=== PATIENT | female | born 1950 | race Asian ===

== ENCOUNTER 2017-10-26 15:58 | Emergency (ER) | payer MEDICARE, OTHER, SELFPAY ==
[2017-10-26 16:04] VITALS: BP 140/87; PULSE 74; RESP 14; TEMP 37.2; O2SAT 97
--- NOTE | 2017-10-26 16:09 | DI.CT.S_ITS ---
PROCEDURE: CT HEAD/BRAIN WO CON INDICATIONS: stroke symptoms - left sided weakness and facial droop for 3 days TECHNIQUE: Noncontrast 4.5 mm thick angled axial sections acquired from the foramen magnum to the vertex, with coronal and sagittal reformats. For radiation dose reduction, the following was used: automated exposure control, adjustment of mA and/or kV according to patient size. COMPARISON: [facility], MR, STROKE PROTOCOL (PNL), 09/02/2010, 10:49. [facility], CT, BRAIN W/O CONTRAST, 06/19/2014, 19:26. FINDINGS: Image quality: Excellent. CSF spaces: Basal cisterns are patent. No extra-axial fluid collections. Ventricles are normal in size and shape. A mild degree of cortical atrophy is present, age related. Brain: No midline shift. No intracranial masses or hemorrhage. Ahn-white matter interface is normal. Skull and face: Calvarium and visualized facial bones are intact, without suspicious lesions. Sinuses: Visualized sinuses show a retention cyst or polyp in the left maxillary sinus, otherwise sinuses and mastoids are clear. IMPRESSION: 1. No acute intracranial abnormality, secondary signs of acute ischemic infarct not evident. 2. Mild cortical atrophy. 3. Chronic left maxillary sinusitis. Dictated by: Von Gooden M.D. on 10/26/2017 at 16:33 Approved by: Von Gooden M.D. on 10/26/2017 at 16:38
[2017-10-26 16:42] LABS: Add Manual Diff / Slide Review NO; Basophils Percent Auto 0.5 % (0-2); Hematocrit 41.6 % (36-46); Hemoglobin 14.3 g/dL (12.0-16.0); Lymphocytes Percent Auto 30.7 % (25-40); Mean Corpuscular HGB Conc 34.4 % (30-36); Mean Corpuscular Hemoglobin 31.7 PG (26-34); Monocytes Percent Auto 7.9 % (3-14); Neutrophils Absolute Auto 3500 /uL (3000-5900); Neutrophils Percent Auto 52.9 % (50-75); Platelet Count 193 X10^3/uL (150-400); Red Blood Cell Count 4.52 X10^6/uL (4.0-5.2); Red Cell Distribution Width 12.7 % (11.6-14.8); White Blood Cell Count 6.6 X10^3/uL (4.5-11.0)
[2017-10-26 16:48] LABS: Prothrombin Time 10.9 SECONDS (10.1-12.7)
[2017-10-26 16:51] LABS: PTT Partial Thromboplastin Tim 34 SECONDS (26.4-36.2)
[2017-10-26 16:54] LABS: BUN Creatinine Ratio 22.9 (6-22); Blood Urea Nitrogen 16 mg/dL (7-17); Calcium 9.2 mg/dL (8.4-10.2); Carbon Dioxide 31 mmol/L (22-32); Chloride 102 mmol/L (98-107); Estimated Glomerular Filt Rate > 60.0 mL/min (>60); Glucose 146 mg/dL (80-110); HEMOLYSIS < 15 (0-50); Potassium 3.3 mmol/L (3.4-5.1); Sodium 142 mmol/L (137-145)
--- NOTE | 2017-10-26 16:57 | DI.MRI.S_ITS ---
PROCEDURE: MR HEAD/BRAIN WO CON INDICATIONS: Left sided numbness from head to toes TECHNIQUE: Noncontrast axial T1 spin echo, axial T2 fast spin echo, sagittal and axial FLAIR, coronal T2 fast spin echo, axial gradient echo, axial diffusion and ADC through the brain. COMPARISON: [facility], CT, CT HEAD/BRAIN WO CON, 10/26/2017, 16:12. [facility], MR, STROKE PROTOCOL (PNL), 09/02/2010, 10:49. FINDINGS: Image quality: Excellent. CSF Spaces: Basal cisterns are patent. No extra-axial fluid collections. Ventricles are normal in size and shape. Brain: No intracranial masses or hemorrhage. Ahn/white matter interface is normal. Brainstem appears normal. Diffusion-weighted images demonstrate no acute ischemic insult. No chronic ischemic insults. Normal intravascular flow voids are present. Skull and face: Calvarium has normal marrow signal. Orbits appear normal. Sinuses: Sinuses demonstrate mucous retention cyst versus polyp in the left maxillary sinus. Minimal mild reyes sinus scattered mucosal thickening is present. Minimal fluid is present within the left mastoid air cells. IMPRESSION: 1. No acute intracranial process. No acute ischemia. Dictated by: Chelita Beyer M.D. on 10/26/2017 at 19:28 Approved by: Chelita Beyer M.D. on 10/26/2017 at 19:33
[2017-10-26] MEDS: KETOROLAC 60 MG/2 ML VIAL 15 MG IV (17:06)
[2017-10-26] MEDS: SODIUM CHLORIDE 0.9% 1,000 ML 150 ML IV (17:07)
[2017-10-26 17:12] VITALS: BP 123/83; PULSE 68; RESP 14; O2SAT 99
[2017-10-26 17:46] VITALS: BP 104/72; PULSE 68; RESP 14; O2SAT 99
[2017-10-26 19:30] VITALS: BP 119/86; PULSE 66; RESP 18; TEMP 36.4; O2SAT 99
--- NOTE | 2017-10-26 20:22 | ED_ITS ---
HPI - Neuro Symptoms/Deficit General Chief Complaint: Neuro Symptoms/Deficit Stated Complaint: HEADACHE HIGH BLOOD PRESSURE LIP DROPPY LEFT SIDE Time Seen by Provider: 10/26/17 16:08 Source: patient Mode of arrival: ambulatory Limitations: no limitations History of Present Illness HPI Narrative: Patient presents to the emergency department today with a chief complaint of a left-sided headache which presents most mornings for approximately 1 year. Associated with this is some left-sided neck pain as well as tingling in her left finger tips and occasionally her toes. She presents to the ER today because her symptoms have been worse than normal for the past 3 days. She denies any blurred vision or trouble with speech. She denies any recent injury. She denies any weakness. Onset (ago): year(s) Location: left arm and left leg History of same: Yes Severity: mild Quality: tingling Relieving factors: none Exacerbating factors: none On Anticoagulants: No Associated symptoms: headaches Treatments Prior to Arrival: none Related Data Home Medications Medication Instructions Recorded Confirmed aspirin 325 mg PO QPM PRN 10/26/17 10/26/17 hydrochlorothiazide 12.5 mg PO DAILY 10/26/17 10/26/17 Previous Rx's Medication Instructions Recorded cyclobenzaprine 10 mg PO TID PRN #14 tab 10/26/17 Allergies Allergy/AdvReac Type Severity Reaction Status Date / Time promethazine Allergy Agitated Verified 10/26/17 17:05 Review of Systems Review of Systems All systems reviewed & are unremarkable except as noted in HPI and below Constitutional Denies chills, Denies fever(s), Reports headache(s), Denies lethargy and Denies weakness Eyes Denies change in vision, Denies eye discharge, Denies irritation and Denies loss of vision ENT Ears, Nose, Mouth, and Throat: Denies change in voice, Reports headache(s), Denies neck pain and Denies sore throat Cardiovascular Denies chest pain, Denies irregular heart rhythm, Denies lightheadedness, Denies palpitations, Denies dyspnea, Denies dyspnea on exertion and Denies orthopnea Respiratory Denies cough, Denies dyspnea, Denies dyspnea on exertion and Denies wheezing Gastrointestinal Gastrointestinal: Denies abdominal pain, Denies change in bowel habits, Denies diarrhea, Denies nausea and Denies vomiting Genitourinary Denies hematuria, Denies flank pain, Denies urinary incontinence and Denies urinary urgency Musculoskeletal Denies neck pain Integumentary/Breasts Denies pruritus, Denies erythema, Denies rash and Denies wounds Neurologic Denies confusion, Reports headache(s), Denies loss of vision and Denies weakness Psychiatric Denies anxiety, Denies confusion, Denies depression, Denies homicidal ideation and Denies suicidal ideation Endocrine Denies palpitations Hematologic/Lymphatic Denies easy bruising Allergic/Immunologic Denies wheezing Exam Initial Vital Signs Initial Vital Signs: Vital Signs Temperature 99.0 F 10/26/17 16:04 Pulse Rate 74 10/26/17 16:04 Respiratory Rate 14 10/26/17 16:04 Blood Pressure 140/87 H 10/26/17 16:04 Pulse Oximetry 97 10/26/17 16:04 Const General: cooperative and well developed Nutritional Appearance: well nourished Orientation: alert, awake, oriented x3 and not confused HENMT Head: normocephalic and atraumatic Ears: external ears normal and TM's normal bilaterally Nose: external nose normal and No nasal discharge Face and sinus: sinuses nontender, face symmetric, no sinus tenderness and No dry mucous membranes Mouth: oral mucosae normal and moist mucous membranes Teeth and gingiva: dentition normal Throat: tonsils normal and uvula midline Eyes General: appearance normal, both eyes and all related structures Eyelids: eyelids normal Conjunctivae: conjunctivae normal Sclera: sclerae normal Pupils: PERRL EOM: EOM intact bilaterally Neck Neck: normal visual inspection, trachea midline, No lymphadenopathy, No midline deformity and No JVD Lymphatic: No lymphedema Chest Chest: normal inspection of the chest Resp Effort & Inspection: normal respiratory effort, able to speak in complete sentences, no respiratory distress and no use of accessory muscles Auscultation: clear to auscultation bilaterally, no rales, no rhonchi and no wheezes Cardio Rate: regular rate Rhythm: regular rhythm Heart Sounds: no click, no gallops, no murmurs and no rubs Pulses: normal peripheral pulses GI Inspection: non-distended Palpation: soft, no hepatosplenomegaly, No guarding, No pulsatile mass and No tender Auscultation: normal bowel sounds Back/Spine/Pelvis Back: No CVA tenderness Cervical Spine: cervical ROM normal and No pain with cervical ROM Thoracic/Lumbar Spine: thoracic and lumbar spine normal to inspection Skin General: no rashes or lesions noted, No jaundice and No petechiae Neuro General: alert, oriented x3, gait normal and no focal motor deficits Speech: speech normal Extrem General: full ROM, no clubbing, cyanosis or edema, no pedal edema and no calf tenderness Psych Appearance: well kempt Mental Status: mental status grossly normal Attitude: cooperative Thought Content: normal and suicidality Judgment: judgment good Scores NIH Stroke Scale Level of Conciousness: Alert, keenly responsive Ask month/age: Answers both questions correctly. Open/close eyes, close hand: Performs both tasks correctly Best gaze horizontal: Normal Visual valle: No visual loss Facial palsy: Normal symetrical movement Left arm drift: No drift for full 10 sec Right arm drift: No drift for full 10 sec Left leg drift: No drift for full 10 sec Right leg drift: No drift for full 10 sec Limb ataxia: Absent Sensory on face/arms/legs: Normal, no sensory loss Best language: No aphasia, normal Dysarthria: Normal Extinction or inattention: No abnormality Total NIH Stroke scale score: 0 Course Orders Ordered: ED Orders 10/26/17 14:15 Basic Metabolic Panel Stat Complete Blood Count AUTO DIFF Stat Partial Thromboplastin Time Stat Prothrombin Time INR Stat 10/26/17 16:09 CT head/brain wo con Stat Urine Drug Screen, Rapid Stat EKG-12 Lead Stat 10/26/17 16:57 MR head/brain wo con Stat Sodium Chloride (Normal Saline 0.9%) 1,000 mls @ 150 mls/hr IV CONT RIMA Last Admin: 10/26/17 17:07 Dose: 150 mls/hr Discontinued Medications Cyclobenzaprine HCl (Flexeril 10 Mg Prepack) 1 bottle MISC SEEINSTR ONE Stop: 10/26/17 20:44 Ketorolac Tromethamine (Toradol) 15 mg IV NOW ONE Stop: 10/26/17 16:59 Last Admin: 10/26/17 17:06 Dose: 15 mg Vital Signs - 8 hr 10/26/17 16:04 10/26/17 17:12 10/26/17 17:46 Temperature 99.0 F Pulse Rate 74 68 68 Respiratory Rate 14 14 14 Blood Pressure 140/87 H Blood Pressure [Left Arm] 123/83 H 104/72 Pulse Oximetry 97 99 99 10/26/17 19:30 Temperature 97.5 F L Pulse Rate 66 Respiratory Rate 18 Blood Pressure Blood Pressure [Left Arm] 119/86 H Pulse Oximetry 99 MDM - Neuro Symptoms/Deficit Differential Diagnosis Likely subarachnoid hemorrhage, cerebrovascular accident, multiple sclerosis and transient cerebral ischemia Medical Records Attestation: I reviewed the patient's medical records. Lab Data Attestation: I reviewed the patient's lab results. Result diagrams: 10/26/17 14:15 10/26/17 14:15 Lab Results 10/26/17 10/26/17 10/26/17 Range/Units 14:15 14:15 14:15 WBC 6.6 (4.5-11.0) X10^3/uL RBC 4.52 (4.0-5.2) X10^6/uL Hgb 14.3 (12.0-16.0) g/dL Hct 41.6 (36-46) % MCV 92.0 (80-100) fL MCH 31.7 (26-34) PG MCHC 34.4 (30-36) % RDW 12.7 (11.6-14.8) % Plt Count 193 (150-400) X10^3/uL Neut % (Auto) 52.9 (50-75) % Lymph % (Auto) 30.7 (25-40) % [place] % (Auto) 7.9 (3-14) % Eos % (Auto) 8.0 H (2-4) % Baso % (Auto) 0.5 (0-2) % Neut # (Auto) 3500 (0146-7644) /uL PT 10.9 (10.1-12.7) SECONDS INR 1.0 (0.9-1.3) APTT 34 (26.4-36.2) SECONDS Sodium 142 (137-145) mmol/L Potassium 3.3 L (3.4-5.1) mmol/L Chloride 102 (98-107) mmol/L Carbon Dioxide 31 (22-32) mmol/L BUN 16 (7-17) mg/dL Creatinine 0.70 (0.52-1.04) mg/dL Estimated GFR > 60.0 (>60) mL/min BUN/Creatinine Ratio 22.9 H (6-22) Glucose 146 H (80-110) mg/dL Calcium 9.2 (8.4-10.2) mg/dL Imaging Data MRI - head: Radiologist's impression: PROCEDURE: MR HEAD/BRAIN WO CON INDICATIONS: Left sided numbness from head to toes TECHNIQUE: Noncontrast axial T1 spin echo, axial T2 fast spin echo, sagittal and axial FLAIR, coronal T2 fast spin echo, axial gradient echo, axial diffusion and ADC through the brain. COMPARISON: [facility], CT, CT HEAD/BRAIN WO CON, 10/26/2017, 16:12. [facility], MR, STROKE PROTOCOL (PNL), 09/02/2010, 10:49. FINDINGS: Image quality: Excellent. CSF Spaces: Basal cisterns are patent. No extra-axial fluid collections. Ventricles are normal in size and shape. Brain: No intracranial masses or hemorrhage. Ahn/white matter interface is normal. Brainstem appears normal. Diffusion-weighted images demonstrate no acute ischemic insult. No chronic ischemic insults. Normal intravascular flow voids are present. Skull and face: Calvarium has normal marrow signal. Orbits appear normal. Sinuses: Sinuses demonstrate mucous retention cyst versus polyp in the left maxillary sinus. Minimal mild reyes sinus scattered mucosal thickening is present. Minimal fluid is present within the left mastoid air cells. IMPRESSION: 1. No acute intracranial process. No acute ischemia. Dictated by: Chelita Beyer M.D. on 10/26/2017 at 19:28 Approved by: Chelita Beyer M.D. on 10/26/2017 at 19:33 Discharge Plan Departure Patient Disposition: Home, Self-Care Clinical Impression: Chronic headaches Instructions: DI for Headache Activity Restrictions/Additional Instructions: *You have been diagnosed with [ chronic headaches with episodic paresthesia ] *What to do: *Take medications as directed *Follow up with your primary care provider in 2-3 days, call for an appointment. Let them know you were seen in the Emergency Department and that we ask that you be seen in follow up *Return to ER if you should have any new, worsening or concerning symptoms , such as [ ] Prescriptions: New cyclobenzaprine 10 mg tablet 10 mg PO TID PRN (Reason: muscle spasm) Qty: 14 RF: 0 No Action aspirin 325 mg Tablet 325 mg PO QPM PRN (Reason: unknown) RF: 0 hydrochlorothiazide 12.5 mg Tablet 12.5 mg PO DAILY RF: 0
[2017-10-26] MEDS: CYCLOBENZAPRINE 10 MG PREPACK 1 BOTTLE MISC (20:50)
[2017-10-26 20:58] VITALS: BP 110/72; PULSE 80; RESP 12
== END 2017-10-26 21:00 | disposition home or self-care (01) ==
PROVIDERS: Emergency Provider Emergency Medicine
DX: R51 Headache (principal)
CPT/HCPCS: 36591; 70450; 70551; 80048; 85025; 85610; 85730; 93005; 93010; 96374; 96375; 99283; 99285; J1885

== ENCOUNTER 2018-10-18 17:51 | Emergency (ER) | payer MEDICARE, OTHER, SELFPAY ==
--- NOTE | 2018-10-18 17:57 | PC.NURSE ---
Pt called for EKG, in restroom.
[2018-10-18 17:59] VITALS: BP 158/100; PULSE 72; RESP 18; TEMP 37.4; O2SAT 96; BMI 29.2
--- NOTE | 2018-10-18 18:05 | DI.RAD.S_ITS ---
PROCEDURE: XR CHEST 1V INDICATIONS: Chest pain TECHNIQUE: One view of the chest was acquired. COMPARISON: [facility], CR, XR CHEST 1VW (PORTABLE), 05/15/2016, 3:34. FINDINGS: Surgical changes and devices: None. Lungs and pleura: Lungs are clear. No pleural effusions or pneumothorax. Mediastinum: Mediastinal contours appear normal. Heart size is normal. Bones and chest wall: No suspicious bony lesions. Overlying soft tissues appear unremarkable. IMPRESSION: No acute cardiopulmonary disease. Dictated by: Stephanie Coleman M.D. on 10/18/2018 at 19:10 Approved by: Stephanie Coleman M.D. on 10/18/2018 at 19:10
[2018-10-18 18:38] LABS: Add Manual Diff / Slide Review NO; Basophils Absolute Auto 0 /uL (0-100); Basophils Percent Auto 0.6 % (0-2); Eosinophils Absolute Auto 200 /uL (0-450); Eosinophils Percent Auto 3.6 % (2-4); Hemoglobin 14.1 g/dL (12.0-16.0); Lymphocytes Absolute Auto 2300 /uL (1100-4500); Lymphocytes Percent Auto 38.7 % (25-40); Mean Corpuscular HGB Conc 33.5 % (30-36); Mean Corpuscular Volume 92.6 fL (80-100); Monocytes Absolute Auto 400 /uL (0-900); Monocytes Percent Auto 6.5 % (3-14); Neutrophils Absolute Auto 3000 /uL (1500-7000); Neutrophils Percent Auto 50.6 % (50-75); Platelet Count 170 X10^3/uL (150-400); Red Blood Cell Count 4.53 X10^6/uL (4.0-5.2); White Blood Cell Count 5.9 X10^3/uL (4.5-11.0)
[2018-10-18] MEDS: MAG HYDROX/ALUMINUM/SIMETH SUS 20 ML, LIDOCAINE VISCOUS 2% 15 ML PO (18:42)
[2018-10-18] MEDS: PANTOPRAZOLE 40 MG VIAL 80 MG IV (18:42)
[2018-10-18 18:48] LABS: Alanine Aminotransferase 94 IU/L (9-52); Albumin 4.5 g/dL (3.5-5.0); Albumin Globulin Ratio 1.5 (1.0-2.8); Alkaline Phosphatase 104 U/L (38-126); Aspartate Aminotransferase 70 IU/L (14-36); Bilirubin Total 0.6 mg/dL (0.2-1.3); Blood Urea Nitrogen 12 mg/dL (7-17); Calcium 9.4 mg/dL (8.4-10.2); Carbon Dioxide 26 mmol/L (22-32); Chloride 106 mmol/L (98-107); Creatine Kinase 240 U/L (30-135); Estimated Glomerular Filt Rate > 60.0 mL/min (>60); Globulin 3.1 g/dL (1.7-4.1); Glucose 132 mg/dL (80-110); HEMOLYSIS < 15 (0-50); Lipase 106 U/L (23-300); Potassium 3.3 mmol/L (3.4-5.1); Sodium 142 mmol/L (137-145); Total Protein 7.6 g/dL (6.3-8.2)
[2018-10-18 18:58] LABS: D Dimer < 200 ng/mL (<230)
[2018-10-18 19:00] LABS: Troponin I < 0.012 ng/mL (0.01-0.034)
[2018-10-18 19:03] LABS: CKMB % Relative Index 0.8 % (1.5-5.0); Creatine Kinase MB 1.95 ng/mL (<2.37)
[2018-10-18 19:24] VITALS: BP 147/98; PULSE 58; RESP 21; O2SAT 98
--- NOTE | 2018-10-18 19:32 | ED.CHESTPAIN ---
HPI - Chest Pain General Chief Complaint: Chest Pain Stated Complaint: lft chest pains, nausea Time Seen by Provider: 10/18/18 18:05 Source: patient and family Mode of arrival: ambulatory Limitations: no limitations History of Present Illness HPI narrative: 68F nonsmoker with history of hypertension presents with her in the chief complaint of left-sided sharp and stabbing chest pain for the past week or so. She denies any injury. She denies associated symptoms such as dizziness, weakness or lightheadedness. She denies any diaphoresis, nausea or vomiting. She denies any provocation with exertion. She states that she frequently coughs at night and the pain, which brought her in, is made worse by deep breath, coughing and palpation. She contacted her primary care doctor's office and the nurse directed her here. She denies recent travel, surgery, history of clot or cancer. MD complaint: chest pain Onset (ago): day(s) Duration: constant Pain location: left chest Severity: mild Quality: sharp Pain radiation: none Exacerbating factors: inspiration, palpation and movement Treatments prior to arrival chest pain: none Related Data On Oral Contraceptives: No Home Medications Medication Instructions Recorded Confirmed aspirin 325 mg PO QPM PRN 10/26/17 10/18/18 hydrochlorothiazide 12.5 mg PO DAILY 10/26/17 10/26/17 Previous Rx's Medication Instructions Recorded cyclobenzaprine 10 mg PO TID PRN #14 tab 10/26/17 Allergies Allergy/AdvReac Type Severity Reaction Status Date / Time promethazine Allergy Agitated Verified 10/18/18 17:58 Review of Systems Constitutional Denies chills, Denies fever(s), Denies lethargy and Denies weakness Eyes Denies change in vision, Denies eye discharge, Denies irritation and Denies loss of vision ENT Ears, Nose, Mouth, and Throat: Denies change in voice, Denies neck pain and Denies sore throat Cardiovascular Denies chest pain, Denies irregular heart rhythm, Denies lightheadedness, Denies palpitations, Denies dyspnea, Denies dyspnea on exertion and Denies orthopnea Respiratory Denies cough, Denies dyspnea, Denies dyspnea on exertion and Denies wheezing Gastrointestinal Gastrointestinal: Denies abdominal pain, Denies change in bowel habits, Denies diarrhea, Denies nausea and Denies vomiting Genitourinary Denies hematuria, Denies flank pain, Denies urinary incontinence and Denies urinary urgency Musculoskeletal Denies neck pain Integumentary/Breasts Denies pruritus, Denies erythema, Denies rash and Denies wounds Neurologic Denies confusion, Denies loss of vision and Denies weakness Psychiatric Denies anxiety, Denies confusion, Denies depression, Denies homicidal ideation and Denies suicidal ideation Endocrine Denies palpitations Hematologic/Lymphatic Denies easy bruising Allergic/Immunologic Denies wheezing PFSH Social History Smoking Status: Never smoker Social History Smoking Status: Never smoker Exam Narrative Exam Narrative: GENERAL: 68-year-old female appears younger than stated age and in no obvious distress HEAD: Atraumatic. Normocephalic. No temporal or scalp tenderness. EYES: Pupils equal round and reactive. Extraocular motions intact. No scleral icterus. No injection or drainage. ENT: Nose without bleeding, purulent drainage or septal hematoma. Throat without erythema, tonsillar hypertrophy or exudate. Uvula midline. Airway patent. NECK: Trachea midline. No JVD or lymphadenopathy. Supple, nontender, no meningeal signs. CARDIOVASCULAR: Regular rate and rhythm without murmurs, gallops, or rubs. Sharp pain to palpation of inferior ribs on the left side RESPIRATORY: Clear to auscultation. Breath sounds equal bilaterally. No wheezes, rales, or rhonchi. GASTROINTESTINAL: Abdomen soft, non-tender, nondistended. No hepato-splenomegaly, or palpable masses. No guarding. EXTREMITIES: No clubbing, cyanosis, or edema. No joint tenderness, effusion, or edema noted. BACK: Nontender without deformity or crepitance. No flank tenderness. NEURO: AOx3. SKIN: No rash or erythema. Initial Vital Signs Initial Vital Signs: Vital Signs Temperature 99.4 F 10/18/18 17:59 Pulse Rate 72 10/18/18 17:59 Respiratory Rate 18 10/18/18 17:59 Blood Pressure 158/100 H 10/18/18 17:59 Pulse Oximetry 96 10/18/18 17:59 Scores HEART Score Heart Score history: Slightly Suspicious Heart Score EKG: Normal Heart Score Age: 45-64 years old Heart Score risk factors: 1-2 risk factors Heart Score troponin: < or = to normal limit Heart Score Total: 2 Course Orders Ordered: Discontinued Medications Al Hydrox/Mg Hydrox/Simethicone 20 ml/ Lidocaine HCl 15 ml 0 ml PO NOW ONE Stop: 10/18/18 18:25 Last Admin: 10/18/18 18:42 Dose: 35 ml Pantoprazole Sodium (Protonix) 80 mg IV NOW ONE Stop: 10/18/18 18:25 Last Admin: 10/18/18 18:42 Dose: 80 mg Vital Signs - 8 hr 10/18/18 17:59 10/18/18 19:24 Temperature 99.4 F Pulse Rate 72 58 L Respiratory Rate 18 21 Blood Pressure 158/100 H Blood Pressure [Left Arm] 147/98 H Pulse Oximetry 96 98 MDM - Chest Pain Lab Data Result diagrams: 10/18/18 18:20 10/18/18 18:20 Lab Results 10/18/18 10/18/18 10/18/18 Range/Units 18:20 18:20 18:20 WBC 5.9 (4.5-11.0) X10^3/uL RBC 4.53 (4.0-5.2) X10^6/uL Hgb 14.1 (12.0-16.0) g/dL Hct 42.0 (36-46) % MCV 92.6 (80-100) fL MCH 31.0 (26-34) PG MCHC 33.5 (30-36) % RDW 13.0 (11.6-14.8) % Plt Count 170 (150-400) X10^3/uL Neut % (Auto) 50.6 (50-75) % Lymph % (Auto) 38.7 (25-40) % [place] % (Auto) 6.5 (3-14) % Eos % (Auto) 3.6 (2-4) % Baso % (Auto) 0.6 (0-2) % Neut # (Auto) 3000 (1063-6099) /uL Lymph # (Auto) 2300 (6129-5267) /uL [place] # (Auto) 400 (0-900) /uL Eos # (Auto) 200 (0-450) /uL Baso # (Auto) 0 (0-100) /uL D-Dimer < 200 (<230) ng/mL Sodium 142 (137-145) mmol/L Potassium 3.3 L (3.4-5.1) mmol/L Chloride 106 (98-107) mmol/L Carbon Dioxide 26 (22-32) mmol/L BUN 12 (7-17) mg/dL Creatinine 0.60 (0.52-1.04) mg/dL Estimated GFR > 60.0 (>60) mL/min BUN/Creatinine Ratio 20.0 (6-22) Glucose 132 H (80-110) mg/dL Calcium 9.4 (8.4-10.2) mg/dL Total Bilirubin 0.6 (0.2-1.3) mg/dL AST 70 H (14-36) IU/L ALT 94 H (9-52) IU/L Alkaline Phosphatase 104 (38-126) U/L Total Creatine Kinase 240 H (30-135) U/L CK-MB (CK-2) 1.95 (<2.37) ng/mL CK-MB (CK-2) Rel Index 0.8 L (1.5-5.0) % Troponin I < 0.012 (0.01-0.034) ng/mL Total Protein 7.6 (6.3-8.2) g/dL Albumin 4.5 (3.5-5.0) g/dL Globulin 3.1 (1.7-4.1) g/dL Albumin/Globulin Ratio 1.5 (1.0-2.8) Lipase 106 (23-300) U/L Imaging Data Chest x-ray: Radiologist's impression: [place] [address] XRay Report Signed Patient: Jay Garnett LMR#: [id number] : 2Acct:[id number] Age/Sex: 68 / FDate of Service: 10/18/18 Loc: ED Accession Number: [id number] Procedure: XR chest 1V Ordering Provider: Rosalinda Alba D.O. PROCEDURE: XR CHEST 1V INDICATIONS: Chest pain TECHNIQUE: One view of the chest was acquired. COMPARISON: [facility], , XR CHEST 1VW (PORTABLE), 05/15/2016, 3:34. FINDINGS: Surgical changes and devices: None. Lungs and pleura: Lungs are clear. No pleural effusions or pneumothorax. Mediastinum: Mediastinal contours appear normal. Heart size is normal. Bones and chest wall: No suspicious bony lesions. Overlying soft tissues appear unremarkable. IMPRESSION: No acute cardiopulmonary disease. Dictated by: Stephanie Coleman M.D. on 10/18/2018 at 19:10 Approved by: Stephanie Coleman M.D. on 10/18/2018 at 19:10 [facility] Narrative Medical decision making narrative: Multiple causes of chest pain considered including GA, PE, pneumothorax, pneumonia, aortic dissection, and pleurisy. Patient reports no radiation, no diaphoresis, no provocation with exertion, and no vomiting. Pain is sharp, stabbing and reproducible with deep breath and palpation. EKG has some nonspecific T-wave abnormalities but no ST segmental elevations or depressions. Heart score is low, troponin unremarkable. Patient is a strong candidate for outpatient workup. Patient and understand diagnosis and discharge instructions. They have been given extensive return precautions and have had questions answered to their apparent satisfaction Discharge Plan Departure Patient Disposition: Home Clinical Impression: Atypical chest pain Discharge Date/Time: 10/18/18 20:06 Interventions: ED Discharge Assessment Last Done: 10/18/18 20:04 Instructions: DI for Atypical Chest Pain Activity Restrictions/Additional Instructions: *You have been diagnosed with [atypical chest pain. Your EKG was unremarkable, chemicals which are secreted by the heart if it's damage were normal, blood clot and ammonia were also considered but ruled out today] *What to do: *Take medications as directed *Follow up with your primary care provider in 2-3 days, call for an appointment. Let them know you were seen in the Emergency Department and that we ask that you be seen in follow up *Return to ER if you should have any new, worsening or concerning symptoms Prescriptions: No Action aspirin 325 mg Tablet 325 mg PO QPM PRN (Reason: unknown) RF: 0 hydrochlorothiazide 12.5 mg Tablet 12.5 mg PO DAILY RF: 0 cyclobenzaprine 10 mg tablet 10 mg PO TID PRN (Reason: muscle spasm) Qty: 14 RF: 0 Referrals: Joseph Palomares MD [Primary Care Provider] -
--- NOTE | 2018-10-18 19:37 | ED_ITS ---
HPI - Chest Pain General Chief Complaint: Chest Pain Stated Complaint: lft chest pains, nausea Time Seen by Provider: 10/18/18 18:05 Source: patient and family Mode of arrival: ambulatory Limitations: no limitations History of Present Illness HPI narrative: 68F nonsmoker with history of hypertension presents with her in the chief complaint of left-sided sharp and stabbing chest pain for the past week or so. She denies any injury. She denies associated symptoms such as dizziness, weakness or lightheadedness. She denies any diaphoresis, nausea or vomiting. She denies any provocation with exertion. She states that she frequently coughs at night and the pain, which brought her in, is made worse by deep breath, coughing and palpation. She contacted her primary care doctor's office and the nurse directed her here. She denies recent travel, surgery, history of clot or cancer. MD complaint: chest pain Onset (ago): day(s) Duration: constant Pain location: left chest Severity: mild Quality: sharp Pain radiation: none Exacerbating factors: inspiration, palpation and movement Treatments prior to arrival chest pain: none Related Data On Oral Contraceptives: No Home Medications Medication Instructions Recorded Confirmed aspirin 325 mg PO QPM PRN 10/26/17 10/18/18 hydrochlorothiazide 12.5 mg PO DAILY 10/26/17 10/26/17 Previous Rx's Medication Instructions Recorded cyclobenzaprine 10 mg PO TID PRN #14 tab 10/26/17 Allergies Allergy/AdvReac Type Severity Reaction Status Date / Time promethazine Allergy Agitated Verified 10/18/18 17:58 Review of Systems Constitutional Denies chills, Denies fever(s), Denies lethargy and Denies weakness Eyes Denies change in vision, Denies eye discharge, Denies irritation and Denies loss of vision ENT Ears, Nose, Mouth, and Throat: Denies change in voice, Denies neck pain and Denies sore throat Cardiovascular Denies chest pain, Denies irregular heart rhythm, Denies lightheadedness, Denies palpitations, Denies dyspnea, Denies dyspnea on exertion and Denies orthopnea Respiratory Denies cough, Denies dyspnea, Denies dyspnea on exertion and Denies wheezing Gastrointestinal Gastrointestinal: Denies abdominal pain, Denies change in bowel habits, Denies diarrhea, Denies nausea and Denies vomiting Genitourinary Denies hematuria, Denies flank pain, Denies urinary incontinence and Denies urinary urgency Musculoskeletal Denies neck pain Integumentary/Breasts Denies pruritus, Denies erythema, Denies rash and Denies wounds Neurologic Denies confusion, Denies loss of vision and Denies weakness Psychiatric Denies anxiety, Denies confusion, Denies depression, Denies homicidal ideation and Denies suicidal ideation Endocrine Denies palpitations Hematologic/Lymphatic Denies easy bruising Allergic/Immunologic Denies wheezing PFSH Social History Smoking Status: Never smoker Social History Smoking Status: Never smoker Exam Narrative Exam Narrative: GENERAL: 68-year-old female appears younger than stated age and in no obvious distress HEAD: Atraumatic. Normocephalic. No temporal or scalp tenderness. EYES: Pupils equal round and reactive. Extraocular motions intact. No scleral icterus. No injection or drainage. ENT: Nose without bleeding, purulent drainage or septal hematoma. Throat without erythema, tonsillar hypertrophy or exudate. Uvula midline. Airway patent. NECK: Trachea midline. No JVD or lymphadenopathy. Supple, nontender, no meningeal signs. CARDIOVASCULAR: Regular rate and rhythm without murmurs, gallops, or rubs. Sharp pain to palpation of inferior ribs on the left side RESPIRATORY: Clear to auscultation. Breath sounds equal bilaterally. No wheezes, rales, or rhonchi. GASTROINTESTINAL: Abdomen soft, non-tender, nondistended. No hepato- splenomegaly, or palpable masses. No guarding. EXTREMITIES: No clubbing, cyanosis, or edema. No joint tenderness, effusion, or edema noted. BACK: Nontender without deformity or crepitance. No flank tenderness. NEURO: AOx3. SKIN: No rash or erythema. Initial Vital Signs Initial Vital Signs: Vital Signs Temperature 99.4 F 10/18/18 17:59 Pulse Rate 72 10/18/18 17:59 Respiratory Rate 18 10/18/18 17:59 Blood Pressure 158/100 H 10/18/18 17:59 Pulse Oximetry 96 10/18/18 17:59 Scores HEART Score Heart Score history: Slightly Suspicious Heart Score EKG: Normal Heart Score Age: 45-64 years old Heart Score risk factors: 1-2 risk factors Heart Score troponin: < or = to normal limit Heart Score Total: 2 Course Orders Ordered: Discontinued Medications Al Hydrox/Mg Hydrox/Simethicone 20 ml/ Lidocaine HCl 15 ml 0 ml PO NOW ONE Stop: 10/18/18 18:25 Last Admin: 10/18/18 18:42 Dose: 35 ml Pantoprazole Sodium (Protonix) 80 mg IV NOW ONE Stop: 10/18/18 18:25 Last Admin: 10/18/18 18:42 Dose: 80 mg Vital Signs - 8 hr 10/18/18 17:59 10/18/18 19:24 Temperature 99.4 F Pulse Rate 72 58 L Respiratory Rate 18 21 Blood Pressure 158/100 H Blood Pressure [Left Arm] 147/98 H Pulse Oximetry 96 98 MDM - Chest Pain Lab Data Result diagrams: 10/18/18 18:20 10/18/18 18:20 Lab Results 10/18/18 10/18/18 10/18/18 Range/Units 18:20 18:20 18:20 WBC 5.9 (4.5-11.0) X10^3/uL RBC 4.53 (4.0-5.2) X10^6/uL Hgb 14.1 (12.0-16.0) g/dL Hct 42.0 (36-46) % MCV 92.6 (80-100) fL MCH 31.0 (26-34) PG MCHC 33.5 (30-36) % RDW 13.0 (11.6-14.8) % Plt Count 170 (150-400) X10^3/uL Neut % (Auto) 50.6 (50-75) % Lymph % (Auto) 38.7 (25-40) % Heard % (Auto) 6.5 (3-14) % Eos % (Auto) 3.6 (2-4) % Baso % (Auto) 0.6 (0-2) % Neut # (Auto) 3000 (2846-2186) /uL Lymph # (Auto) 2300 (0477-9610) /uL Heard # (Auto) 400 (0-900) /uL Eos # (Auto) 200 (0-450) /uL Baso # (Auto) 0 (0-100) /uL D-Dimer < 200 (<230) ng/mL Sodium 142 (137-145) mmol/L Potassium 3.3 L (3.4-5.1) mmol/L Chloride 106 (98-107) mmol/L Carbon Dioxide 26 (22-32) mmol/L BUN 12 (7-17) mg/dL Creatinine 0.60 (0.52-1.04) mg/dL Estimated GFR > 60.0 (>60) mL/min BUN/Creatinine Ratio 20.0 (6-22) Glucose 132 H (80-110) mg/dL Calcium 9.4 (8.4-10.2) mg/dL Total Bilirubin 0.6 (0.2-1.3) mg/dL AST 70 H (14-36) IU/L ALT 94 H (9-52) IU/L Alkaline Phosphatase 104 (38-126) U/L Total Creatine Kinase 240 H (30-135) U/L CK-MB (CK-2) 1.95 (<2.37) ng/mL CK-MB (CK-2) Rel Index 0.8 L (1.5-5.0) % Troponin I < 0.012 (0.01-0.034) ng/mL Total Protein 7.6 (6.3-8.2) g/dL Albumin 4.5 (3.5-5.0) g/dL Globulin 3.1 (1.7-4.1) g/dL Albumin/Globulin Ratio 1.5 (1.0-2.8) Lipase 106 (23-300) U/L Imaging Data Chest x-ray: Radiologist's impression: [place] [address] XRay Report Signed Patient: Jay Garnett LMR#: [id number] : 2Acct:[id number] Age/Sex: 68 / FDate of Service: 10/18/18 Loc: ED Accession Number: [id number] Procedure: XR chest 1V Ordering Provider: Rosalinda Alba D.O. PROCEDURE: XR CHEST 1V INDICATIONS: Chest pain TECHNIQUE: One view of the chest was acquired. COMPARISON: [facility], , XR CHEST 1VW (PORTABLE), 05/15/2016, 3:34. FINDINGS: Surgical changes and devices: None. Lungs and pleura: Lungs are clear. No pleural effusions or pneumothorax. Mediastinum: Mediastinal contours appear normal. Heart size is normal. Bones and chest wall: No suspicious bony lesions. Overlying soft tissues appear unremarkable. IMPRESSION: No acute cardiopulmonary disease. Dictated by: Stephanie Coleman M.D. on 10/18/2018 at 19:10 Approved by: Stephanie Coleman M.D. on 10/18/2018 at 19:10 [facility] Narrative Medical decision making narrative: Multiple causes of chest pain considered including [place], PE, pneumothorax, pneumonia, aortic dissection, and pleurisy. Patient reports no radiation, no diaphoresis, no provocation with exertion, and no vomiting. Pain is sharp, stabbing and reproducible with deep breath and palpation. EKG has some nonspecific T-wave abnormalities but no ST segmental elevations or depressions. Heart score is low, troponin unremarkable. Patient is a strong candidate for outpatient workup. Patient and understand diagnosis and discharge instructions. They have been given extensive return precautions and have had questions answered to their apparent satisfaction Discharge Plan Departure Patient Disposition: Home Clinical Impression: Atypical chest pain Discharge Date/Time: 10/18/18 20:06 Interventions: ED Discharge Assessment Last Done: 10/18/18 20:04 Instructions: DI for Atypical Chest Pain Activity Restrictions/Additional Instructions: *You have been diagnosed with [atypical chest pain. Your EKG was unremarkable, chemicals which are secreted by the heart if it's damage were normal, blood clot and ammonia were also considered but ruled out today] *What to do: *Take medications as directed *Follow up with your primary care provider in 2-3 days, call for an appointment. Let them know you were seen in the Emergency Department and that we ask that you be seen in follow up *Return to ER if you should have any new, worsening or concerning symptoms Prescriptions: No Action aspirin 325 mg Tablet 325 mg PO QPM PRN (Reason: unknown) RF: 0 hydrochlorothiazide 12.5 mg Tablet 12.5 mg PO DAILY RF: 0 cyclobenzaprine 10 mg tablet 10 mg PO TID PRN (Reason: muscle spasm) Qty: 14 RF: 0 Referrals: Joseph Palomares MD [Primary Care Provider] -
== END 2018-10-18 20:06 | disposition home or self-care (01) ==
PROVIDERS: Emergency Medicine; Emergency Provider Emergency Medicine; PCP Family Medicine
DX: R07.89 Other chest pain (principal)
CPT/HCPCS: 36591; 71045; 80053; 82550; 82553; 83690; 84484; 85025; 85379; 93005; 96374; 99283; 99284; C9113